=== PATIENT | female | born 1975 | race Caucasian/White ===

== ENCOUNTER 2017-03-04 13:33 | Emergency (ER) | payer SELFPAY ==
[~2017-03-04] VITALS: Ht 160 cm; Wt 70.0 kg
[~2017-03-04 13:33] MED LIST: CLIN1CAP6 PO; DOXY100T PO; IBUP800T23 PO; TOPI25 PO
[2017-03-04 13:42] VITALS: BP 124/86; PULSE 88; RESP 18; O2SAT 97
--- NOTE | 2017-03-04 13:51 | PD ---
Physical Exam Date Seen by Provider: Mar 04, 2017 Time Seen by Provider: 13:50 Narrative 42 yo female here for evaluation of left knee laceration. Brought by ambulance to triage. Painful 12/02. Per patient lac above the knee. About 5 cm per ambulance. Wrapped in triage with bleeding controlled. No other medical issues. Cut it today with glass. Vitals are stable in triage. Awaiting bed placement. Data Data Last Documented VS Vital Signs Date Time Temp Pulse Resp B/P (MAP) Pulse Ox O2 Delivery O2 Flow Rate FiO2 03/04/17 13:42 88 18 124/86 (99) 97 Room Air [facility] Medical Record Reviewed: Yes Supervised Visit with JULIAN: No Ki Lagunas Mar 04, 2017 13:51
[2017-03-04] MEDS ORDERED: IBUP800T23 PO (15:22)
[2017-03-04] MEDS ORDERED: CLIN1CAP5 PO (15:23)
--- NOTE | 2017-03-04 15:23 | PD ---
HPI Chief Complaint: Skin Problem Time Seen by Provider: 15:20 Travel History International Travel<30 days: No Contact w/Intl Traveler<30days: No Traveled to known affect area: No PFSH Past Medical History Diminished Hearing: No Immunizations Current: Yes ?: Not Social History Alcohol Use: No Tobacco Use: No Substance Use: Yes Allergies-Medications (Allergen,Severity, Reaction): Coded Allergies: penicillin G (Verified Allergy, Severe, 03/04/17) Reported Meds & Prescriptions Reported Meds & Active Scripts Active Clindamycin (Clindamycin HCl) 150 Mg Cap 300 Mg PO Q8HR 7 Days Ibuprofen 800 Mg Tab 800 Mg PO Q6HR PRN Ibuprofen 800 Mg Tab 800 Mg PO TID PRN Clindamycin Hcl (Clindamycin HCl) 300 Mg Cap 300 Mg PO Q6HR 10 Days Doxycycline Hyclate 100 mg (Doxycycline Hyclate) 100 Mg Tab 100 Mg PO BID 10 Days Topamax (Topiramate) 25 Mg Tab 50 Mg PO HS Data Data Last Documented VS Vital Signs Date Time Temp Pulse Resp B/P (MAP) Pulse Ox O2 Delivery O2 Flow Rate FiO2 03/04/17 15:43 03/04/17 13:42 88 18 97 Room Air Orders Orders Lidocaine 1% Inj (50 Ml) (Xylocaine 1% I (03/04/17 15:30) Ed Discharge Order (03/04/17 15:23) MDM Medical Decision Making Medical Screen Exam Complete: Yes Emergency Medical Condition: Yes Medical Record Reviewed: Yes Diagnosis Primary Impression: Laceration of left thigh Qualified Codes: S71.112A - Laceration without foreign body, left thigh, initial encounter Referrals: Primary Care Physician Patient Instructions: General Instructions, Laceration (ED), Staple Care (ED) Additional Instructions: Keep area clean and dry Limit left leg activity to decrease risk of chinyere coming undone Ibuprofen or Tylenol as directed and as needed for pain and inflammation Ice pack to area as needed to decrease pain Return to the emergency department in 14-28 days for staple removal Follow up with primary care provider within 2-4 days Return to the emergency department immediately with worsening of symptoms, particularly if reddened streaks up or down the affected extremity from the suture site, fever, numbness/tingling in the affected extremity, loss of sensation in the affected extremity, severe swelling of the affected Med/Other Pt SpecificInfo: Prescription(s) given Scripts Clindamycin (Clindamycin) 150 Mg Cap 300 MG PO Q8HR for Infection for 7 Days, CAP 0 Refills Prov: Tammy Yates 03/04/17 Ibuprofen (Ibuprofen) 800 Mg Tab 800 MG PO Q6HR Y for PAIN, #40 TAB 0 Refills Prov: Tammy Yates 03/04/17 Disposition: 01 DISCHARGE HOME Condition: Stable Tammy Yates Mar 04, 2017 15:23
[2017-03-04] MEDS ORDERED: LIDOCAINE HCL 1% 50 ML VIAL INFIL ONE (15:30)
--- NOTE | 2017-03-04 15:46 | PD ---
HPI Chief Complaint: Skin Problem Time Seen by Provider: 15:20 Travel History International Travel<30 days: No Contact w/Intl Traveler<30days: No Traveled to known affect area: No History of Present Illness HPI 42-year-old female presents to emergency department via EMS with complaint of a laceration to her left lateral thigh after kicking a recycling bin with a piece of glass in it and it cutting her leg today. Reports tetanus update just yesterday. Denies paresthesias, loss of sensation, decreased range of motion, decreased strength to the affected extremity. Has not taken any medication for symptom management. Has applied a bandage and pressure to control bleeding. Allergies to penicillin. Symptoms are mild in severity. Has no other medical complaints. No other modifying factors or associated signs and symptoms. PFSH Past Medical History Diminished Hearing: No Immunizations Current: Yes ?: Not Social History Alcohol Use: No Tobacco Use: No Substance Use: Yes Allergies-Medications (Allergen,Severity, Reaction): Coded Allergies: penicillin G (Verified Allergy, Severe, 03/04/17) Reported Meds & Prescriptions Reported Meds & Active Scripts Active Clindamycin (Clindamycin HCl) 150 Mg Cap 300 Mg PO Q8HR 7 Days Ibuprofen 800 Mg Tab 800 Mg PO Q6HR PRN Ibuprofen 800 Mg Tab 800 Mg PO TID PRN Clindamycin Hcl (Clindamycin HCl) 300 Mg Cap 300 Mg PO Q6HR 10 Days Doxycycline Hyclate 100 mg (Doxycycline Hyclate) 100 Mg Tab 100 Mg PO BID 10 Days Topamax (Topiramate) 25 Mg Tab 50 Mg PO HS Review of Systems Except as stated in HPI: all other systems reviewed are Neg Physical Exam Narrative GENERAL: Well-nourished, well-developed female patient, in no acute distress SKIN: Warm and dry. Left lateral distal thigh with approximately 3-1/2 cm laceration; bleeding controlled. Left lower extremity is supple and nontender 2 + pedal pulses and sensory intact without erythema or edema. HEAD: Atraumatic. Normocephalic. EYES: Pupils equal and round. No scleral icterus. No injection or drainage. ENT: Mucosa pink and moist. Airway patent. NECK: Trachea midline. CARDIOVASCULAR: Regular rate. RESPIRATORY: No accessory muscle use. GASTROINTESTINAL: Rounded. MUSCULOSKELETAL: No obvious deformities. No clubbing. No cyanosis. No edema. NEUROLOGICAL: Awake and alert. Oriented 3. No obvious cranial nerve deficits. Motor grossly within normal limits. Normal speech. PSYCHIATRIC: Appropriate mood and affect; insight and judgment normal. Data Data Last Documented VS Vital Signs Date Time Temp Pulse Resp B/P (MAP) Pulse Ox O2 Delivery O2 Flow Rate FiO2 03/04/17 13:42 88 18 124/86 (99) 97 Room Air Orders Orders Lidocaine 1% Inj (50 Ml) (Xylocaine 1% I (03/04/17 15:30) Ed Discharge Order (03/04/17 15:23) MDM Medical Decision Making Medical Screen Exam Complete: Yes Emergency Medical Condition: Yes Medical Record Reviewed: Yes Differential Diagnosis Laceration, contusion, abrasion Narrative Course 42-year-old female with left thigh laceration. Tetanus is up-to-date. See my procedure note laceration repair. Clindamycin and ibuprofen prescribed for home. Instructed patient to return to the emergency department or follow-up with primary care provider in 14-28 days for staple removal. Instructed patient to follow up with primary care provider. Patient verbalizes understanding and agreement with treatment plan. Patient is medically cleared and stable for discharge. Discussed reasons to return to the emergency department. Patient agrees with treatment plan. The patients vital signs are stable and the patient is stable for outpatient follow-up and treatment. Patient discharged home, stable and in no acute distress. Procedures Procedure Narrative LACERATION LOCATION: Left lateral distal thigh LENGTH: 3-1/2 centimeters NUMBER OF STITCHES/CHINYERE: 8 chinyere REPAIR: The area of the laceration was prepped with Betadine and sterilely draped. The laceration was infiltrated with 1% lidocaine. The wound was copiously irrigated and explored without evidence of foreign body , tendon injury or neurovascular injury. The wound was closed using chinyere. This was a single layer repair. A sterile dressing was applied. The patient was advised to keep the dressing clean and dry. Patient tolerated the procedure well. Diagnosis Primary Impression: Laceration of left thigh Qualified Codes: S71.112A - Laceration without foreign body, left thigh, initial encounter Referrals: Primary Care Physician Patient Instructions: General Instructions, Laceration (ED), Staple Care (ED) Departure Forms: Tests/Procedures Additional Instructions: Keep area clean and dry Limit left leg activity to decrease risk of chinyere coming undone Ibuprofen or Tylenol as directed and as needed for pain and inflammation Ice pack to area as needed to decrease pain Return to the emergency department in 14-28 days for staple removal Follow up with primary care provider within 2-4 days Return to the emergency department immediately with worsening of symptoms, particularly if reddened streaks up or down the affected extremity from the suture site, fever, numbness/tingling in the affected extremity, loss of sensation in the affected extremity, severe swelling of the affected Scripts Clindamycin (Clindamycin) 150 Mg Cap 300 MG PO Q8HR for Infection for 7 Days, CAP 0 Refills Prov: Tammy Yates 03/04/17 Ibuprofen (Ibuprofen) 800 Mg Tab 800 MG PO Q6HR Y for PAIN, #40 TAB 0 Refills Prov: Tammy Yates 03/04/17 Disposition: 01 DISCHARGE HOME Condition: Stable Tammy Yates Mar 04, 2017 15:46
== END 2017-03-04 15:47 | disposition home or self-care (01) ==
LOC: NEPK 13:33
DX: S71.112A Laceration without foreign body, left thigh, initial encounter (principal); W25.XXXA Contact with sharp glass, initial encounter
CPT/HCPCS: 12002

== ENCOUNTER 2017-10-23 23:15 | Emergency (ER) | payer OTHER ==
[~2017-10-23] VITALS: Ht 160 cm; Wt 60.0 kg
[~2017-10-23 23:15] MED LIST changes: +CLIN150C14 PO; +IBUP1TAB7 PO
[2017-10-23 23:30] VITALS: BP 139/91; PULSE 151; RESP 18; TEMP 98; O2SAT 98
[2017-10-23 23:43] LABS: BASOPHIL % 0.6 % (0.0-2.0); EOSINOPHIL # 0.3 TH/MM3 (0-0.4); EOSINOPHIL % 3.3 % (0.0-4.0); HEMATOCRIT 38.3 % (35.0-46.0); HEMOGLOBIN 12.9 GM/DL (11.6-15.3); LYMPHOCYTE # 3.6 TH/MM3 (1.0-4.8); MEAN CELL VOLUME 82.2 FL (80.0-100.0); MEAN CORPUSCULAR HEMOGLOBIN 27.6 PG (27.0-34.0); MEAN CORPUSCULAR HGB CONC 33.6 % (32.0-36.0); MEAN PLATELET VOLUME 7.9 FL (7.0-11.0); MONO % 7.8 % (0.0-8.0); MONOCYTE # 0.7 TH/MM3 (0-0.9); NEUT % 46.3 % (16.0-70.0); PLATELET COUNT 328 TH/MM3 (150-450); RED BLOOD COUNT 4.65 MIL/MM3 (4.00-5.30); RED CELL DISTRIBUTION WIDTH 12.9 % (11.6-17.2); WHITE BLOOD COUNT 8.6 TH/MM3 (4.0-11.0)
[2017-10-23 23:46] VITALS: PULSE 126; RESP 18; O2SAT 97
[2017-10-23 23:55] LABS: BICARBONATE 20.2 MEQ/L (21.0-32.0); BLOOD UREA NITROGEN 14 MG/DL (7-18); CALCIUM 9.4 MG/DL (8.5-10.1); CHLORIDE 109 MEQ/L (98-107); CREATININE 0.68 MG/DL (0.50-1.00); GLOMERULAR FILTRATION RATE 94 ML/MIN (>89); GLUCOSE,RANDOM 131 MG/DL (74-106); SODIUM (NA) 145 MEQ/L (136-145)
[2017-10-24] MEDS ORDERED: SODIUM CHLOR 0.9% 1000 ML INJ 1,000 ML IV ONE
--- NOTE | 2017-10-24 00:01 | PD ---
HPI Chief Complaint: Psychiatric Symptoms Time Seen by Provider: 23:34 Travel History International Travel<30 days: No Contact w/Intl Traveler<30days: No Traveled to known affect area: No History of Present Illness HPI 42-year-old female history of bipolar disorder presents emergency department under Avilez act for psychiatric evaluation. Patient states her and her got into an argument and police were contacted. She made statements about wanting to be done with her life. She states she really just wanted to leave the house. She denies suicidal homicidal ideations. She has no other symptoms to report at this time. [facility] Past Medical History Bipolar Disorder: Yes Diminished Hearing: No Immunizations Current: Yes Tetanus Vaccination: Unknown Influenza Vaccination: No ?: Unknown Social History Alcohol Use: Yes (occ) Tobacco Use: No Substance Use: Yes (weed) Allergies-Medications (Allergen,Severity, Reaction): Coded Allergies: penicillin G (Verified Allergy, Severe, 10/23/17) Reported Meds & Prescriptions Reported Meds & Active Scripts Active Reported Nexium (Esomeprazole DR) 20 Mg Capdr 20 Mg PO DAILY Topiramate 50 Mg Tab 50 Mg PO HS Review of Systems Except as stated in HPI: all other systems reviewed are Neg Physical Exam Narrative GENERAL: Well-nourished female patient, no acute distress SKIN: Focused skin assessment warm/dry. HEAD: Atraumatic. Normocephalic. EYES: Pupils equal and round. No scleral icterus. No injection or drainage. ENT: No nasal bleeding or discharge. Mucous membranes pink and moist. NECK: Trachea midline. No JVD. CARDIOVASCULAR: Tachycardic rate and rhythm. No murmur appreciated. RESPIRATORY: No accessory muscle use. Clear to auscultation. Breath sounds equal bilaterally. GASTROINTESTINAL: Abdomen soft, non-tender, nondistended. Hepatic and splenic margins not palpable. MUSCULOSKELETAL: No obvious deformities. No clubbing. No cyanosis. No edema. NEUROLOGICAL: Awake and alert. No obvious cranial nerve deficits. Motor grossly within normal limits. Normal speech. Data Data Last Documented VS Vital Signs Date Time Temp Pulse Resp B/P (MAP) Pulse Ox O2 Delivery O2 Flow Rate FiO2 10/24/17 02:31 98.3 106 19 124/59 (80) 98 Room Air Orders Orders Complete Blood Count With Diff (10/23/17 23:33) Thyroid Stimulating Hormone (10/23/17 23:33) Basic Metabolic Panel (Bmp) (10/23/17 23:33) Psych Screen (10/23/17 23:33) Drug Screen, Random Urine (10/23/17 23:33) Alcohol (Ethanol) (10/23/17 23:33) Sodium Chlor 0.9% 1000 Ml Inj (Ns 1000 M (10/24/17 00:00) Iv Access Insert/Monitor (10/24/17 00:04) Diet Regular Basic (10/24/17 Breakfast) Alcohol Withdrawal Asmt-Ciwa ONCE (10/24/17 00:41) Ondansetron Odt (Zofran Odt) (10/24/17 00:45) Ibuprofen (Motrin) (10/24/17 00:45) Flumazenil Inj (Romazicon Inj) (10/24/17 00:45) Lorazepam (Ativan) (10/24/17 00:45) Lorazepam Inj (Ativan Inj) (10/24/17 00:45) Lorazepam (Ativan) (10/24/17 00:45) Lorazepam Inj (Ativan Inj) (10/24/17 00:45) Lorazepam Inj (Ativan Inj) (10/24/17 00:45) Lorazepam Inj (Ativan Inj) (10/24/17 00:45) Labs Laboratory Tests Test 10/23/17 23:30 10/24/17 00:05 White Blood Count 8.6 TH/MM3 Red Blood Count 4.65 MIL/MM3 Hemoglobin 12.9 GM/DL Hematocrit 38.3 % Mean Corpuscular Volume 82.2 FL Mean Corpuscular Hemoglobin 27.6 PG Mean Corpuscular Hemoglobin Concent 33.6 % Red Cell Distribution Width 12.9 % Platelet Count 328 TH/MM3 Mean Platelet Volume 7.9 FL Neutrophils (%) (Auto) 46.3 % Lymphocytes (%) (Auto) 42.0 % Monocytes (%) (Auto) 7.8 % Eosinophils (%) (Auto) 3.3 % Basophils (%) (Auto) 0.6 % Neutrophils # (Auto) 4.0 TH/MM3 Lymphocytes # (Auto) 3.6 TH/MM3 Monocytes # (Auto) 0.7 TH/MM3 Eosinophils # (Auto) 0.3 TH/MM3 Basophils # (Auto) 0.0 TH/MM3 CBC Comment DIFF FINAL Differential Comment Blood Urea Nitrogen 14 MG/DL Creatinine 0.68 MG/DL Random Glucose 131 MG/DL Calcium Level 9.4 MG/DL Sodium Level 145 MEQ/L Potassium Level 3.5 MEQ/L Chloride Level 109 MEQ/L Carbon Dioxide Level 20.2 MEQ/L Anion Gap 16 MEQ/L Estimat Glomerular Filtration Rate 94 ML/MIN Thyroid Stimulating Hormone 3rd Gen LESS THAN 0.005 uIU/ML Ethyl Alcohol Level 200 MG/DL Urine Opiates Screen NEG Urine Barbiturates Screen NEG Urine Amphetamines Screen NEG Urine Benzodiazepines Screen NEG Urine Cocaine Screen NEG Urine Cannabinoids Screen POS MDM Medical Decision Making Medical Screen Exam Complete: Yes Emergency Medical Condition: Yes Medical Record Reviewed: Yes Differential Diagnosis Mood disorder versus personality disorder versus alcohol intoxication versus substance abuse Narrative Course 42-year-old female presents emergency department under Avilez act for psychiatric evaluation. Patient appears without distress. She does admit to drinking alcohol. Patient's heart rate is quite elevated. She will be placed in a medical pod where she will be placed on a monitor and given IV normal saline fluid. Upon reassessment, patient's heart rate has normalized. Lab work is reviewed and without acute concern. Patient will be medically cleared to undergo psychiatric screening for further evaluation and disposition. Mental health screening discussed with the patient. Psychiatric screen ordered. Laboratory Tests Test 10/23/17 23:30 10/24/17 00:05 White Blood Count 8.6 TH/MM3 Red Blood Count 4.65 MIL/MM3 Hemoglobin 12.9 GM/DL Hematocrit 38.3 % Mean Corpuscular Volume 82.2 FL Mean Corpuscular Hemoglobin 27.6 PG Mean Corpuscular Hemoglobin Concent 33.6 % Red Cell Distribution Width 12.9 % Platelet Count 328 TH/MM3 Mean Platelet Volume 7.9 FL Neutrophils (%) (Auto) 46.3 % Lymphocytes (%) (Auto) 42.0 % Monocytes (%) (Auto) 7.8 % Eosinophils (%) (Auto) 3.3 % Basophils (%) (Auto) 0.6 % Neutrophils # (Auto) 4.0 TH/MM3 Lymphocytes # (Auto) 3.6 TH/MM3 Monocytes # (Auto) 0.7 TH/MM3 Eosinophils # (Auto) 0.3 TH/MM3 Basophils # (Auto) 0.0 TH/MM3 CBC Comment DIFF FINAL Differential Comment Blood Urea Nitrogen 14 MG/DL Creatinine 0.68 MG/DL Random Glucose 131 MG/DL Calcium Level 9.4 MG/DL Sodium Level 145 MEQ/L Potassium Level 3.5 MEQ/L Chloride Level 109 MEQ/L Carbon Dioxide Level 20.2 MEQ/L Anion Gap 16 MEQ/L Estimat Glomerular Filtration Rate 94 ML/MIN Thyroid Stimulating Hormone 3rd Gen LESS THAN 0.005 uIU/ML Ethyl Alcohol Level 200 MG/DL Urine Opiates Screen NEG Urine Barbiturates Screen NEG Urine Amphetamines Screen NEG Urine Benzodiazepines Screen NEG Urine Cocaine Screen NEG Urine Cannabinoids Screen POS Diagnosis Primary Impression: Bipolar disorder Qualified Codes: F31.9 - Bipolar disorder, unspecified Additional Impression: Intoxication Condition: Stable Donna Pina Oct 24, 2017 00:01
[2017-10-24 00:19] VITALS: PULSE 107; RESP 18; O2SAT 96
[2017-10-24] MEDS ORDERED: LORazepam 2 MG/ML VIAL IV PUSH PRN ×4 (00:45)
[2017-10-24] MEDS ORDERED: LORazepam 1 MG TAB PO PRN (00:45)
[2017-10-24] MEDS ORDERED: LORazepam 2 MG TAB PO PRN (00:45)
[2017-10-24] MEDS ORDERED: FLUMAZENIL 0.5 MG/5 ML VIAL IV PUSH PRN (00:45)
[2017-10-24] MEDS ORDERED: ONDANSETRON ODT 4 MG TAB PO PRN (00:45)
[2017-10-24] MEDS ORDERED: IBUPROFEN 600 MG TAB PO PRN (00:45)
[2017-10-24 02:31] VITALS: BP 124/59; PULSE 106; RESP 19; TEMP 98.3; O2SAT 98
[2017-10-24] MEDS ORDERED: TOPI50TA7 PO (03:51)
[2017-10-24] MEDS ORDERED: NEXI20CA PO (03:53)
[2017-10-24 06:45] VITALS: BP 140/65; PULSE 115; RESP 18; O2SAT 98
--- NOTE | 2017-10-24 14:34 | PD ---
History of Present Illness Chief Complaint: Psychiatric Symptoms Time Seen by Provider: 14:00 Travel History International Travel<30 Days: No Contact w/Intl Traveler<30days: No Known affected area: No Legal Status Legal Status: Avilez Act Avilez Act Signed By: Coco Kamara History of Present Illness: History of Present Illness HPI 42-year-old, , female with history of bipolar disorder, alcohol use disorder, cannabis use disorder presents emergency department under Avilez act initiated by law enforcement for psychiatric evaluation. The Avilez act report alleges that the police responded to a domestic incident. No details reported. She stated she would kill herself if she was not able to leave her residence but would not explain how. She was reported as being continually jittery and crying. The patient upon arrival to the ED presented with a blood alcohol level of 200 and positive toxicology for cannabinoids. She was allowed to sober up clinically and presented no suicidality while under observation. EMR reviewed the patient was last evaluated in 2015. At the time she also presented intoxicated. Previous to that she was seen in 2012 at that time she was sent to [facility] for further treatment. The patient is seen. She is clinically sober. Dress and hospital pajamas and somewhat disheveled appearance. Her speech is clear and logical. She is tearful. Patient states" I had a bit to drink. I had a tantrum when I found out my was using drugs. I called 911 because I did not want to stay there. I do not want to kill myself but I do not know if I want to be back home with my ." The patient states that she found out her had been using crack cocaine and they were arguing about it. Patient currently is not taking any medication due to reported side effects. She was last seen by her psychiatrist Dr. Goel 4 months ago. The patient does not present any evidence of any psychosis, no kalli, no hypomania. Her mood is anxious. She denies any suicidal or homicidal ideation, intent or plan. In terms of alcohol use she denies that she drinks on a daily basis but that she rather drinks episodically and when she does she tends to drink until she is intoxicated. PFSH Past Medical History Bipolar Disorder: Yes Diminished Hearing: No Immunizations Current: Yes Tetanus Vaccination: Unknown Influenza Vaccination: No ?: Unknown Psychiatric History Psychiatric History Hx Psychiatric Treatment: Began psychiatric treatment as an adolescent. Has been diagnosed with bipolar disorder, ADHD. Has been admitted to [facility]. No previous suicide attempts. One episode of self-injurious behavior by cutting her wrist in 2012 History of Inpatient Treatment: Yes ([facility]) Guns or firearms in home: No Social History 15 years. Currently lives with her . Has no children. Works at a [employer]. Hx Alcohol Use: Yes (occ) Hx Tobacco Use: No Hx Substance Use: Yes (marijuana, alcohol) Substance Use Type: Alcohol, Marijuana Hx of Substance Use Treatment: No Family Psychiatric History Negative Allergies-Medications (Allergen,Severity, Reaction): Coded Allergies: penicillin G (Verified Allergy, Severe, 10/23/17) Reported Meds & Prescriptions Reported Meds & Active Scripts Active Reported Nexium (Esomeprazole DR) 20 Mg Capdr 20 Mg PO DAILY Topiramate 50 Mg Tab 50 Mg PO HS Review of Systems Psychiatric: COMPLAINS OF: Mood changes Except as stated in HPI: all other systems reviewed are Neg Mental Status Examination Appearance: Disheveled Consciousness: Alert Orientation: x4 Motor Activity: Normal gait Speech: Unremarkable Language: Adequate Fund of Knowledge: Adequate Attention and Concentration: Adequate Memory: Unremarkable Mood: Appropriate, Sad, Anxious Affect: Other (tearful) Thought Process & Associations: Intact, Logical, Goal directed Thought Content: Appropriate Hallucination Type: None Delusion Type: None Suicidal Ideation: No Suicidal Plan: No Suicidal Intention: No Homicidal Ideation: No Homicidal Plan: No Homicidal Intention: No Insight: Fair Judgment: Adequate [facility] Medical Decision Making Medical Record Reviewed: Yes Assessment/Plan 42-year-old, , female with history of bipolar disorder, alcohol use disorder, cannabis use disorder presents emergency department under Avilez act initiated by law enforcement for psychiatric evaluation. The Avilez act report alleges that the police responded to a domestic incident. No details reported. She stated she would kill herself if she was not able to leave her residence but would not explain how. She was reported as being continually jittery and crying. The patient upon arrival to the ED presented with a blood alcohol level of 200 and positive toxicology for cannabinoids. She was allowed to sober up clinically and presented no suicidality while under observation. Once clinically sober the patient denies any suicidal or homicidal ideation. She admits to having called the police so that she could leave her home. She is requesting to be discharge as she has to work tomorrow. I have found no criteria to keep her here against her well. I have recommended abstinence from alcohol. I have also recommend that she follow up with outpatient psychiatric provider. BA is lifted. Psychiatrically cleared for discharge from ED. Orders Orders Complete Blood Count With Diff (10/23/17 23:33) Thyroid Stimulating Hormone (10/23/17 23:33) Basic Metabolic Panel (Bmp) (10/23/17 23:33) Psych Screen (10/23/17 23:33) Drug Screen, Random Urine (10/23/17 23:33) Alcohol (Ethanol) (10/23/17 23:33) Sodium Chlor 0.9% 1000 Ml Inj (Ns 1000 M (10/24/17 00:00) Iv Access Insert/Monitor (10/24/17 00:04) Diet Regular Basic (10/24/17 Breakfast) Alcohol Withdrawal Asmt-Ciwa ONCE (10/24/17 00:41) Ondansetron Odt (Zofran Odt) (10/24/17 00:45) Ibuprofen (Motrin) (10/24/17 00:45) Flumazenil Inj (Romazicon Inj) (10/24/17 00:45) Lorazepam (Ativan) (10/24/17 00:45) Lorazepam Inj (Ativan Inj) (10/24/17 00:45) Lorazepam (Ativan) (10/24/17 00:45) Lorazepam Inj (Ativan Inj) (10/24/17 00:45) Lorazepam Inj (Ativan Inj) (10/24/17 00:45) Lorazepam Inj (Ativan Inj) (10/24/17 00:45) Diet Regular Basic (10/24/17 Lunch) Results Vital Signs Date Time Temp Pulse Resp B/P (MAP) Pulse Ox O2 Delivery O2 Flow Rate FiO2 10/24/17 06:45 115 18 140/65 (90) 98 Room Air 10/24/17 02:31 98.3 106 19 124/59 (80) 98 Room Air 10/24/17 00:19 107 18 96 Room Air 10/23/17 23:46 126 18 97 Room Air 10/23/17 23:30 98.0 151 18 139/91 (107) 98 Laboratory Tests Test 10/23/17 23:30 10/24/17 00:05 White Blood Count 8.6 Red Blood Count 4.65 Hemoglobin 12.9 Hematocrit 38.3 Mean Corpuscular Volume 82.2 Mean Corpuscular Hemoglobin 27.6 Mean Corpuscular Hemoglobin Concent 33.6 Red Cell Distribution Width 12.9 Platelet Count 328 Mean Platelet Volume 7.9 Neutrophils (%) (Auto) 46.3 Lymphocytes (%) (Auto) 42.0 Monocytes (%) (Auto) 7.8 Eosinophils (%) (Auto) 3.3 Basophils (%) (Auto) 0.6 Neutrophils # (Auto) 4.0 Lymphocytes # (Auto) 3.6 Monocytes # (Auto) 0.7 Eosinophils # (Auto) 0.3 Basophils # (Auto) 0.0 CBC Comment DIFF FINAL Differential Comment Blood Urea Nitrogen 14 Creatinine 0.68 Random Glucose 131 Calcium Level 9.4 Sodium Level 145 Potassium Level 3.5 Chloride Level 109 Carbon Dioxide Level 20.2 Anion Gap 16 Estimat Glomerular Filtration Rate 94 Thyroid Stimulating Hormone 3rd Gen LESS THAN 0.005 Ethyl Alcohol Level 200 Urine Opiates Screen NEG Urine Barbiturates Screen NEG Urine Amphetamines Screen NEG Urine Benzodiazepines Screen NEG Urine Cocaine Screen NEG Urine Cannabinoids Screen POS Diagnosis Primary Impression: Bipolar disorder Additional Impression: Alcohol abuse Psychiatrically Cleared: Yes Med/ Other Pt Specific Info: No Change to Meds Disposition: 01 DISCHARGE HOME Condition: Stable Problem Qualifiers Primary Impression: Bipolar disorder Qualified Codes: F31.9 - Bipolar disorder, unspecified Marcelina Chavez [facility] Oct 24, 2017 14:33
--- NOTE | 2017-10-24 15:22 | PD ---
Physical Exam Time Seen by Provider: 15:19 SHARIF Forbes has evaluated the patient, lifted the Avilez act and cleared the patient for discharge. Data Data Last Documented VS Vital Signs Date Time Temp Pulse Resp B/P (MAP) Pulse Ox O2 Delivery O2 Flow Rate FiO2 10/24/17 15:16 10/24/17 06:45 115 18 98 Room Air 10/24/17 02:31 98.3 Orders Orders Complete Blood Count With Diff (10/23/17 23:33) Thyroid Stimulating Hormone (10/23/17 23:33) Basic Metabolic Panel (Bmp) (10/23/17 23:33) Psych Screen (10/23/17 23:33) Drug Screen, Random Urine (10/23/17 23:33) Alcohol (Ethanol) (10/23/17 23:33) Sodium Chlor 0.9% 1000 Ml Inj (Ns 1000 M (10/24/17 00:00) Iv Access Insert/Monitor (10/24/17 00:04) Diet Regular Basic (10/24/17 Breakfast) Alcohol Withdrawal Asmt-Ciwa ONCE (10/24/17 00:41) Ondansetron Odt (Zofran Odt) (10/24/17 00:45) Ibuprofen (Motrin) (10/24/17 00:45) Flumazenil Inj (Romazicon Inj) (10/24/17 00:45) Lorazepam (Ativan) (10/24/17 00:45) Lorazepam Inj (Ativan Inj) (10/24/17 00:45) Lorazepam (Ativan) (10/24/17 00:45) Lorazepam Inj (Ativan Inj) (10/24/17 00:45) Lorazepam Inj (Ativan Inj) (10/24/17 00:45) Lorazepam Inj (Ativan Inj) (10/24/17 00:45) Diet Regular Basic (10/24/17 Lunch) Diet Regular Basic (10/24/17 Dinner) Labs Laboratory Tests Test 10/23/17 23:30 10/24/17 00:05 White Blood Count 8.6 TH/MM3 Red Blood Count 4.65 MIL/MM3 Hemoglobin 12.9 GM/DL Hematocrit 38.3 % Mean Corpuscular Volume 82.2 FL Mean Corpuscular Hemoglobin 27.6 PG Mean Corpuscular Hemoglobin Concent 33.6 % Red Cell Distribution Width 12.9 % Platelet Count 328 TH/MM3 Mean Platelet Volume 7.9 FL Neutrophils (%) (Auto) 46.3 % Lymphocytes (%) (Auto) 42.0 % Monocytes (%) (Auto) 7.8 % Eosinophils (%) (Auto) 3.3 % Basophils (%) (Auto) 0.6 % Neutrophils # (Auto) 4.0 TH/MM3 Lymphocytes # (Auto) 3.6 TH/MM3 Monocytes # (Auto) 0.7 TH/MM3 Eosinophils # (Auto) 0.3 TH/MM3 Basophils # (Auto) 0.0 TH/MM3 CBC Comment DIFF FINAL Differential Comment Blood Urea Nitrogen 14 MG/DL Creatinine 0.68 MG/DL Random Glucose 131 MG/DL Calcium Level 9.4 MG/DL Sodium Level 145 MEQ/L Potassium Level 3.5 MEQ/L Chloride Level 109 MEQ/L Carbon Dioxide Level 20.2 MEQ/L Anion Gap 16 MEQ/L Estimat Glomerular Filtration Rate 94 ML/MIN Thyroid Stimulating Hormone 3rd Gen LESS THAN 0.005 uIU/ML Ethyl Alcohol Level 200 MG/DL Urine Opiates Screen NEG Urine Barbiturates Screen NEG Urine Amphetamines Screen NEG Urine Benzodiazepines Screen NEG Urine Cocaine Screen NEG Urine Cannabinoids Screen POS MDM Supervised Visit with JULIAN: No Narrative Course SHARIF Hewitt has evaluated the patient, lifted the Fatmata act and cleared the patient for discharge. Patient contracts safety. Denies suicidal or homicidal ideations. Patient will be provided community resource packet to [facility] for follow-up. Has friends and family for support. Patient was medically cleared by alternate provider prior to psych screening. Patient has been evaluated by psychiatry and and is now cleared for discharge. Diagnosis Primary Impression: Bipolar disorder Qualified Codes: F31.9 - Bipolar disorder, unspecified Additional Impression: Intoxication Referrals: [facility] (Out patient) [facility] Primary Care Physician Psychiatrist Dottie [facility] Patient Instructions: Abuse of Alcohol (ED), Alcohol Dependence (ED), Alcohol Intoxication (ED), Bipolar Disorder (ED), Cannabis Abuse (ED), General Instructions Additional Instruction: Contract safety to your self and others Follow-up with psychiatry Follow-up with primary care provider Follow-up with Ta Gutierres Return to the emergency department immediately with worsening of symptoms Med/Other Pt SpecificInfo: No Change to Meds, No Meds Exist/No RX given Disposition: 01 DISCHARGE HOME Condition: Stable Tammy Yates Oct 24, 2017 15:22
== END 2017-10-24 15:38 | disposition home or self-care (01) ==
LOC: NEPE 23:15 → NEPJ 10-24 15:38
DX: F31.9 Bipolar disorder, unspecified (principal); F10.129 Alcohol abuse with intoxication, unspecified; F12.90 Cannabis use, unspecified, uncomplicated; Y90.7 Blood alcohol level of 200-239 mg/100 ml; Z79.899 Other long term (current) drug therapy
CPT/HCPCS: 80048; 80307; 84443; 85025; 99284; J7030